=== PATIENT | female | born 1965 | race Caucasian/White ===

== ENCOUNTER → 2016-10-16 | Outpatient (CLI) | payer OTHER ==
[~2016-10-16] MED LIST: VICODIN 7.5/501 EACH PO
--- NOTE | 2016-10-16 20:08 | RADIOLOGY REPORT PS360 ---
CERVICAL SPINE 4 OR 5 VIEWS ORDERING PHYSICIAN : BERNADETTE ALMENDAREZ PATIENT AGE: 51 years GENDER: Female INDICATION: NECK PAIN AND NUMBNESS Neck pain with right arm pain on and off a few months increasing over past month. TECHNIQUE: Five-view cervical spine series COMPARISON: No previous FINDINGS The cervical vertebral bodies are intact There is disc space narrowing with prominent anterior marginal osteophytes C5 C6 C6/7. Also suggestion of mild posterior ridging and cervical spondylosis developing posteriorly at these levels. Facet hypertrophy bilaterally: Most prominent facet hypertrophy is at, C3/4 on right. The hypertrophy spurring here encroaches upon the right foramen at C3/4. Less pronounced facet arthropathy, hypertrophy also noted at C2/3 on the left., And at C7/T1 bilateral Nonspecific straightening the cervical spine. Prevertebral soft tissues normal. C1 1 C2 with normal relationships. IMPRESSION: Degenerative changes cervical spine as detailed above Foraminal encroachment most evident
== END ==
LOC: RAD 11:38
DX: M54.2 Cervicalgia (principal)

== ENCOUNTER → 2016-10-19 | Outpatient (CLI) | payer OTHER ==
--- NOTE | 2016-10-19 16:59 | RADIOLOGY REPORT PS360 ---
MRI-C-SPINE W/O, MRI-3D RENDERING/MYELOGRAM HISTORY: Neck pain with bilateral arm numbness right worse than left, abnormal radiographs CHRONIC NECK PAIN COMPARISON: 10/16/2016 radiographs TECHNIQUE: Standard multiplanar multiecho sequences are performed without contrast. 3-D MIP and myelographic images are also rendered and reviewed FINDINGS: There is slight reversal of the mid cervical lordosis. The craniocervical junction has an unremarkable appearance. C2-C3 and C3-C4 are unremarkable. C4-C5: Small anterior osteophytes with mild degenerative disc disease and 2 mm anterolisthesis of C4. Minimal bulging disc with greater minimal central disc protrusion C5-C6: Degenerative disc disease with anterior osteophytes and minimal bulging disc and minimal central disc protrusion slightly toward the left versus prominent posterior longitudinal ligament. Borderline narrowing of the canal at this level. Mild type I. Endplate changes at C5-C6 and C6-C7. C6-C7: Degenerative disc disease with mild bulging disc with mild narrowing of the canal at 10 mm. No disc herniation or other significant anomalies evident. IMPRESSION: 1. Mild multilevel degenerative disc disease with minimal bulging disc as described above with mild narrowing of the canal at C5-C6 and C6-C7. 2. No disc herniation, cord compression, or other significant anomalies evident.
== END ==
LOC: RAD 11:15
DX: M54.2 Cervicalgia (principal); G89.29 Other chronic pain; R20.0 Anesthesia of skin; R20.2 Paresthesia of skin

== ENCOUNTER → 2016-11-06 | Outpatient (CLI) | payer OTHER ==
[2016-11-06 11:59] LABS: HEMOGLOBIN 14.2 g/dL (12.2-16.2); LYMPH # 2.3 K/mm3 (0.7-4.5); LYMPH % 32.3 % (10-50.0)
== END ==
LOC: LAB 11:46
PROVIDERS: Nurse Practitioner Family
DX: R79.89 Other specified abnormal findings of blood chemistry (principal)